=== PATIENT | female | born 1935 | race Caucasian/White ===

== ENCOUNTER → 2016-07-01 | Outpatient (CLI) | payer OTHER, MEDICARE | LOC: BMCIMAGING 07:25 | PROVIDERS: ATTEND Family Medicine | DX: Z12.31 Encounter for screening mammogram for malignant neoplasm of breast (principal) | CPT/HCPCS: G0202 ==

== ENCOUNTER → 2016-10-12 | Outpatient (CLI) | payer OTHER, MEDICARE | PROVIDERS: ATTEND Otolaryngology | DX: R13.10 Dysphagia, unspecified (principal) | CPT/HCPCS: 92611-GN ==

== ENCOUNTER → 2017-03-25 | Day surgery (SDC) | payer OTHER, MEDICARE ==
[~2017-03-25] MED LIST: IOPAMIDOL (ISOVUE 370) 100 ML BTL IV ONE
== END | disposition home or self-care (01) ==
LOC: FIMAGING 07:07
PROVIDERS: ATTEND Surgery
DX: I77.4 Celiac artery compression syndrome (principal); I77.3 Arterial fibromuscular dysplasia; K57.30 Diverticulosis of large intestine without perforation or abscess without bleeding; M47.896 Other spondylosis, lumbar region; M43.16 Spondylolisthesis, lumbar region
CPT/HCPCS: Q9967

== ENCOUNTER 2017-04-05 14:23 | Day surgery (SDC) | payer OTHER, MEDICARE ==
[2017-04-05] MEDS ORDERED: LR 1,000 ML IV ONE (14:48)
[2017-04-05] MEDS ORDERED: LIDOCAINE 1% 2 ML INJ ID PRN (14:48)
[2017-04-05 14:57] VITALS: BP 128/63; PULSE 85; RESP 18; TEMP 97.9; O2SAT 96
--- NOTE | 2017-04-05 15:17 | PDANEPAE ---
ANE History of Present Illness abdominal pain ANE Past Medical History - Cardiovascular History Hx Hypertension: Yes Hx Arrhythmias: No Hx Chest Pain: No Hx Coronary Artery / Peripheral Vascular Disease: Yes Hx CHF / Valvular Disease: No Hx Palpitations: No Cardiovascular History Comment: hyperlipidemia. aortic valve regurgitation - Pulmonary History Hx COPD: No Hx Asthma/Reactive Airway Disease: No Hx Recent Upper Respiratory Infection: No Hx Oxygen in Use at Home: Yes O2 in Use at Home (L/minute): 2 Hx Sleep Apnea: Yes Sleep Apnea Screening Result - Last Documented: Positive Pulmonary History Comment: ezio positive uses o2 - Neurologic History Hx Cerebrovascular Accident: No Hx Seizures: No Hx Dementia: No Neurologic History Comment: hx back surgery - Endocrine History Hx Diabetes: No - Renal History Hx Renal Disorders: Yes Renal History Comment: UTI 02/2017. renal artery stenosis, - Liver History Hx Hepatic Disorders: No - Neurological & Psychiatric Hx Hx Neurological and Psychiatric Disorders: No - Cancer History Hx Cancer: Yes Cancer History Comment: skin ca - Congenital Disorder History Hx Congenital Disorders: No - GI History Hx Gastrointestinal Disorders: Yes Gastrointestinal History Comment: reflux. chronic ruq pain - Other Health History Other Health History: Hemolytic anemia,. patient requests warm IV fluids and lots of warming blankets - Chronic Pain History Chronic Pain: Yes (RUQ) - Surgical History Prior Surgeries: EGD WITH BX 10/2015. YULI CATARACT. hysterectomy. appy. tonsillectomy. babak / gallbladder / common bile duct surgery. LAMINECTOMY ANE Review of Systems Review of Systems: - Exercise capacity METS (RN): 4 METS ANE Patient History - Allergies Allergies/Adverse Reactions: No Known Allergies Allergy (Verified 03/17/17 12:55) - Home Medications Home Medications: BENICAR 20 mg PO HS 11/25/08 [Last Taken 10/17/15] Align 1 tab PO HS 10/17/15 [Last Taken 10/17/15] Aspirin 81mg (*) 81 mg PO HS 10/17/15 [Last Taken 10/17/15] Folic Acid 1 MG (*) HS 10/17/15 [Last Taken 10/17/15] Vitamin D3 2000 units tab (OTC) 2,000 units PO DAILY 10/17/15 [Last Taken ] Zetia 10 MG (*) 10 mg PO HS 10/17/15 [Last Taken 10/17/15] - NPO status NPO Since - Liquids (Date): 04/05/17 NPO Since - Liquids (Time): 12:30 NPO Since - Solids (Date): 04/04/17 NPO Since - Solids (Time): 18:00 - Smoking Hx Smoking Status: Never smoked - Family Anes Hx Family Hx Anesthesia Complications: none ANE Labs/Vital Signs - Vital Signs Blood Pressure: 128/63 Heart Rate: 85 Respiratory Rate: 18 O2 Sat (%): 96 Height: 162.56 cm Weight: 68.946 kg ANE Physical Exam - Airway Neck exam: FROM Mallampati Score: Class 2 Mouth exam: normal dental/mouth exam - Pulmonary Pulmonary: no respiratory distress - Cardiovascular Cardiovascular: regular rate and rhythym - ASA Status ASA Status: III ANE Anesthesia Plan Anesthesia Plan: general endotracheal anesthesia
[2017-04-05] MEDS ORDERED: GLUCAGON HCL 1 MG VIAL ONE (15:20)
[2017-04-05] MEDS ORDERED: IOTHALAMATE MEG (CONRAY) 50 ML VIAL IV ONE (15:21)
== END 2017-04-05 16:00 | disposition home or self-care (01) ==
LOC: FSGY 14:23
PROVIDERS: ATTEND Internal Medicine Gastroenterology
DX: R10.11 Right upper quadrant pain (principal); E78.5 Hyperlipidemia, unspecified; I35.1 Nonrheumatic aortic (valve) insufficiency; G47.33 Obstructive sleep apnea (adult) (pediatric); Z99.81 Dependence on supplemental oxygen; Z53.09 Procedure and treatment not carried out because of other contraindication
CPT/HCPCS: J1610; Q9961

== ENCOUNTER 2017-04-19 13:22 | Day surgery (SDC) | payer OTHER, MEDICARE ==
[~2017-04-19 13:22] MED LIST changes: +GLUCAGON HCL 1 MG VIAL ONE; -IOPAMIDOL (ISOVUE 370) 100 ML BTL IV ONE; +IOTHALAMATE MEG (CONRAY) 50 ML VIAL IV ONE
[2017-04-19] MEDS ORDERED: LIDOCAINE 1% 2 ML INJ ID PRN (13:47)
[2017-04-19] MEDS ORDERED: LR 1,000 ML IV ONE (13:47)
--- NOTE | 2017-04-19 14:34 | PDGENHP ---
History & Physical Chief Complaint: abdominal pain History of Present Illness: 81 year old female presents for evauation of RUQ abdominal pain and biliary dilation. Pertinent Past, Social, Family History: FaMHx: no hx of panc can. SugHx: CCY Relevant Physical Exam: HEENT: anicteric. CV: RRR +s1s2. Lung: CTAB. Abd: soft, nt, + bs Cardiorespiratory Assessment: ASA 2
--- NOTE | 2017-04-19 14:38 | PDANEPAE ---
ANE History of Present Illness 81 yo female with chronic abd pain for EGD/EUS, ERCP ANE Past Medical History - Cardiovascular History Hx Hypertension: Yes Hx Arrhythmias: No Hx Chest Pain: No Hx Coronary Artery / Peripheral Vascular Disease: Yes Hx CHF / Valvular Disease: No Hx Palpitations: No Cardiovascular History Comment: hyperlipidemia, CAD. aortic valve regurgitation - moderate - Pulmonary History Hx COPD: No Hx Asthma/Reactive Airway Disease: No Hx Recent Upper Respiratory Infection: No Hx Oxygen in Use at Home: Yes O2 in Use at Home (L/minute): 2l at noc Hx Sleep Apnea: Yes Sleep Apnea Screening Result - Last Documented: Positive Pulmonary History Comment: ezio positive uses o2 - Neurologic History Hx Cerebrovascular Accident: No Hx Seizures: No Hx Dementia: No Neurologic History Comment: hx back surgery - Endocrine History Hx Diabetes: No Hypothyroid: No Hyperthyroid: No - Renal History Hx Renal Disorders: Yes Renal History Comment: UTI 02/2017. renal artery stenosis, - Liver History Hx Hepatic Disorders: No - Neurological & Psychiatric Hx Hx Neurological and Psychiatric Disorders: No - Cancer History Hx Cancer: Yes Cancer History Comment: skin ca - Congenital Disorder History Hx Congenital Disorders: No - GI History GERD: moderate Hx Gastrointestinal Disorders: Yes Gastrointestinal History Comment: reflux. chronic ruq pain - Other Health History Other Health History: Hemolytic anemia. wears glasses. patient requests warm IV fluids and lots of warming blankets - Chronic Pain History Chronic Pain: Yes (RUQ) - Surgical History Prior Surgeries: procedure cx'd 04/05/17 with Raju d/t broth being ingested. EGD WITH BX 10/2015. YULI CATARACT. hysterectomy. appy. tonsillectomy. babak / gallbladder / common bile duct surgery. LAMINECTOMY ANE Review of Systems Review of Systems: - Exercise capacity METS (RN): 4 METS - Systems Gastrointestinal: Reports: abdominal pain ANE Patient History - Allergies Allergies/Adverse Reactions: No Known Allergies Allergy (Verified 04/16/17 11:14) - Home Medications Home medications: home medication list seen and reviewed Home Medications: BENICAR 11/25/08 [Last Taken 04/18/17 20:30] Align 10/17/15 [Last Taken 04/18/17 20:30] Aspirin 81mg (*) 10/17/15 [Last Taken 04/16/17] Folic Acid 1 MG (*) 10/17/15 [Last Taken 04/16/17] Vitamin D3 2000 units tab (OTC) HS 10/17/15 [Last Taken 04/16/17] Zetia 10 MG (*) 10/17/15 [Last Taken 04/18/17 20:30] - NPO status NPO Since - Liquids (Date): 04/19/17 NPO Since - Liquids (Time): 10:00 NPO Since - Solids (Date): 04/18/17 NPO Since - Solids (Time): 18:00 - Anes Hx Anes Hx: no prior problems - Smoking Hx Smoking Status: Never smoked Marijuana use: No - Alcohol Use Alcohol Use: Rarely - Family Anes Hx Family Anes Hx: neg - N/A Family Hx Anesthesia Complications: none ANE Labs/Vital Signs - Vital Signs Blood Pressure: 129/61 Heart Rate: 85 Respiratory Rate: 16 O2 Sat (%): 96 Height: 162.56 cm Weight: 68.946 kg ANE Physical Exam - Airway Neck exam: FROM Mallampati Score: Class 2 Mouth exam: normal dental/mouth exam - Pulmonary Pulmonary: clear to auscultation - Cardiovascular Cardiovascular: regular rate and rhythym - ASA Status ASA Status: III ANE Anesthesia Plan Anesthesia Plan: general endotracheal anesthesia
[2017-04-19] MEDS ORDERED: ROCURONIUM 50 MG/5 ML VIAL ONE (14:50)
[2017-04-19] MEDS ORDERED: LIDOCAINE 2% 5 ML SDV ONE (14:50)
[2017-04-19] MEDS ORDERED: DEXAMETHASONE 4 MG/ML VIAL ONE (14:50)
[2017-04-19] MEDS ORDERED: PROPOFOL 200 MG/20 ML VIAL ONE (14:51)
[2017-04-19] MEDS ORDERED: fentaNYL 100 MCG/2 ML INJ ONE (14:51)
[2017-04-19] MEDS ORDERED: INDOMETHACIN 50 MG SUPP PR PRN (14:52)
[2017-04-19] MEDS ORDERED: NS 500 ML IV SCH (15:00)
[2017-04-19] MEDS ORDERED: PHENYLEPHRINE HCL 100 MCG/ML SYR ONE (15:11)
[2017-04-19] MEDS ORDERED: INDOMETHACIN 50 MG SUPP PR ONE (15:15)
[2017-04-19] MEDS ORDERED: SUGAMMADEX SODIUM 200 MG/2 ML VIAL IVP ONE (15:38)
--- NOTE | 2017-04-19 15:51 | GIREPORT ---
[facility] - Endoscopy Department Patient Name: Zuri Cordero Procedure Date: 04/19/2017 2:20 PM Patient Type: Outpatient Attending MD/ ER Physician: Magdaleno Benton MD Procedure: Upper EUS Indications: Common bile duct dilation (acquired) seen on CT scan, Abdominal pain in the right upper quadrant Patient Profile: 81 year old female presents for evaluation of biliary dilation/RUQ abdo sandy pain. Providers: Magdaleno Benton MD Medicines: General Anesthesia Complications: No immediate complications. Estimated blood loss: Minimal. Description of Procedure: After obtaining informed consent, the endoscope was passed under direct vision. Throughout the procedure, the patient's blood pressure, pulse, and oxygen saturations were monitored continuously. The Endosonoscope was introduced through the mouth, and advanced to the second part of duoden um. The Endoscope was introduced through the mouth, and advanced to the sec ond part of duodenum. The upper EUS was accomplished without difficulty. Th e esophagus, stomach, and duodenum were visualized endosonographically. T he patient tolerated the procedure well. Findings: Endoscopic Finding : The examined esophagus was normal. A medium-sized hiatal hernia was present. Patchy mildly erythematous mucosa was found in the gastric body and in the gastric antrum. Biopsies were taken with a cold forceps for histology. Multiple sessile polyps were found on the greater curvature of the stom ach. Biopsies were taken with a cold forceps for histology. The examined duodenum was normal. Biopsies for histology were taken wit h a cold forceps for evaluation of celiac disease. Endosonographic Finding : There was dilation in the common bile duct which measured up to 9 mm wi th a possible distal stricture Moderate hyperechoic material consistent with sludge was visualized endosonographically in the common bile duct. There was no sign of significant endosonographic abnormality in the visualized portion of the liver. No lymphadenopathy seen. Pancreatic parenchymal abnormalities were noted in the entire pancreas. These consisted of hyperechoic foci. Estimated Blood Loss: Estimated blood loss was minimal. Post Op Diagnosis: - Normal esophagus. - Medium-sized hiatal hernia. - Erythematous mucosa in the gastric body and antrum. Biopsied. - Multiple gastric polyps. Biopsied. - Normal examined duodenum. Biopsied. - There was dilation in the common bile duct which measured up to 9 mm with mild stricturing in the distal CBD, - Hyperechoic material consistent with sludge was visualized endosonographically in the common bile duct. - There was no evidence of significant pathology in the visualized port ion of the liver. - Pancreatic parenchymal abnormalities consisting of hyperechoic foci w ere noted in the entire pancreas. Recommendation: - Perform an ERCP today. - More recommendations on colonosocpy report. - Await path results. - Thank you for allowing me to participate in the care of your patient. Attending Participation: I personally performed the entire procedure. Magdaleno Benton MD Magdaleno Benton MD 04/19/2017 3:50:37 PM This report has been signed electronicallyMagdaleno Benton MD Number of Addenda: 0 Note Initiated On: 04/19/2017 2:20 PM [email or web address]
[2017-04-19] MEDS ORDERED: LR 500 ML IV PRN (15:58)
[2017-04-19] MEDS ORDERED: NALOXONE HCL 0.4 MG/ML INJ IVP PRN ×2 (15:58)
[2017-04-19] MEDS ORDERED: ACETAMINOPHEN 500 MG TAB PO PRN (15:58)
[2017-04-19] MEDS ORDERED: ALBUTEROL 3 ML DEYVIAL IH PRN (15:58)
[2017-04-19] MEDS ORDERED: ONDANSETRON 4 MG/2 ML VIAL IVP PRN (15:58)
--- NOTE | 2017-04-19 15:59 | POSTANESTH ---
Post Anesthetic Evaluation Cardiovascular Status: Normal, Stable Respiratory Status: Normal, Stable Level of Consciousness/Mental Status: Can Participate in Eval, Moderately Sleepy Pain Control: Adequate, Prn Tx Ordered Nausea/Vomiting Control: Adequate, Prn Tx Ordered Complications Possibly Related to Anesthesia: None Noted
--- NOTE | 2017-04-19 16:04 | GIREPORT ---
[facility] - Endoscopy Department Patient Name: Zuri Cordero Procedure Date: 04/19/2017 2:20 PM Patient Type: Outpatient Attending MD/ ER Physician: Magdaleno Benton MD Procedure: ERCP Indications: Abdominal pain of suspected biliary origin, Abnormal endoscopic ultraso und of the biliary system Patient Profile: Ms. Cordero is a 81 year old female who presents for evaluation of bili jacques obstruction. Providers: Magdaleno Benton MD Medicines: General Anesthesia, Indomethacin 100 mg CA Complications: No immediate complications. Estimated blood loss: Minimal. Description of Procedure: After obtaining informed consent, the scope was passed under direct vis ion. Throughout the procedure, the patient's blood pressure, pulse, and oxyg en saturations were monitored continuously. The was introduced through the mouth, and advanced to the duodenum and used to inject contrast into th e bile duct. The ERCP was accomplished without difficulty. The patient tolerated the procedure well. Findings: The cupola man film was normal. The esophagus was successfully intubated und er direct vision. The scope was advanced to a normal major papilla in the descending duodenum without detailed examination of the pharynx, larynx and associated structures, and upper GI tract. The upper GI tract was gross ly normal. Evidence of a prior biliary sphincterotomy was visualzied A wir e was passed into the biliary tree. The short-nosed traction sphincterotome w as passed over the guidewire and the bile duct was then deeply cannulated. There was grasping of the sphincterotome consistent with ampullary sten osis. Contrast was injected. I personally interpreted the bile duct images. D uctal flow of contrast was adequate. Image quality was adequate. Contrast ext ended to the entire biliary tree. A 6 mm biliary sphincterotomy was made with a traction (standard) sphincterotome using pure cut current. There was no post-sphincterotomy bleeding. The biliary tree was swept with a 12 mm balloon starting at the bifurcation. Sludge was swept from the duct. Estimated Blood Loss: Estimated blood loss was minimal. Post Op Diagnosis: - Ssupected ampullary stenosis. - A biliary sphincterotomy was performed. - The biliary tree was swept and sludge was found. Recommendation: - Discharge patient to home (with escort). - Clear liquid diet. - Continue present medications. - Office follow up in 6 weeks. - Thank you for allowing me to particpate in the care of your patient. Attending Participation: I personally performed the entire procedure. Magdaleno Benton MD Magdaleno Benton MD 04/19/2017 4:03:43 PM This report has been signed electronicallyMagdaleno Benton MD Number of Addenda: 0 Note Initiated On: 04/19/2017 2:20 PM [email or web address]
[2017-04-19 16:37] VITALS: PULSE 69; TEMP 98.6
[2017-04-19] MEDS ORDERED: IBUPROFEN 200 MG TAB PO ONE (16:56)
[2017-04-19] MEDS ORDERED: IBUPROFEN 800 MG TAB PO ONE ×2 (17:00→17:05)
[2017-04-19 17:42] VITALS: RESP 19; O2SAT 93
[2017-04-19 19:00] VITALS: BP 131/71
== END 2017-04-19 19:00 | disposition home or self-care (01) ==
LOC: FSGY 13:22
PROVIDERS: ATTEND Internal Medicine Gastroenterology
PROC: 0DB68ZX Excision of Stomach, Via Natural or Artificial Opening Endoscopic, Diagnostic (ICD-10-PCS; principal; 2017-04-19 14:45)
PROC: 0F798ZZ Dilation of Common Bile Duct, Via Natural or Artificial Opening Endoscopic (ICD-10-PCS; principal; 2017-04-19 14:45)
PROC: 0DB98ZX Excision of Duodenum, Via Natural or Artificial Opening Endoscopic, Diagnostic (ICD-10-PCS; principal; 2017-04-19 14:45)
DX: D13.1 Benign neoplasm of stomach (principal); K29.70 Gastritis, unspecified, without bleeding; G47.34 Idiopathic sleep related nonobstructive alveolar hypoventilation; I35.1 Nonrheumatic aortic (valve) insufficiency; I10 Essential (primary) hypertension; I25.10 Atherosclerotic heart disease of native coronary artery without angina pectoris; E78.5 Hyperlipidemia, unspecified; K21.9 Gastro-esophageal reflux disease without esophagitis; D58.9 Hereditary hemolytic anemia, unspecified; Z99.81 Dependence on supplemental oxygen
CPT/HCPCS: J1100; J1610; J2370; J2704; J3010; Q9961

== ENCOUNTER → 2017-04-27 | Outpatient (CLI) | payer OTHER, MEDICARE | LOC: BHFA 11:30 | PROVIDERS: ATTEND Internal Medicine | DX: R06.00 Dyspnea, unspecified (principal) ==

== ENCOUNTER → 2017-05-07 | Outpatient (CLI) | payer OTHER, MEDICARE | LOC: BHFA 13:00 | PROVIDERS: ATTEND Internal Medicine Cardiovascular Disease | DX: R94.30 Abnormal result of cardiovascular function study, unspecified (principal) | CPT/HCPCS: 78452; 93017; A9500 ==

== ENCOUNTER → 2017-05-11 | Outpatient (CLI) | payer OTHER, MEDICARE | LOC: BHFA 14:45 | PROVIDERS: ATTEND Internal Medicine | DX: I35.1 Nonrheumatic aortic (valve) insufficiency (principal) ==

== ENCOUNTER → 2017-07-05 | Outpatient (CLI) | payer OTHER, MEDICARE | LOC: BMCIMAGING 08:18 | PROVIDERS: ATTEND Family Medicine | DX: Z12.31 Encounter for screening mammogram for malignant neoplasm of breast (principal) ==

== ENCOUNTER → 2017-11-02 | Outpatient (CLI) | payer OTHER, MEDICARE | LOC: BMCIMAGING 12:23 | PROVIDERS: ATTEND Internal Medicine Rheumatology | DX: M11.241 Other chondrocalcinosis, right hand (principal); M11.242 Other chondrocalcinosis, left hand ==

== ENCOUNTER → 2018-06-23 | Outpatient (CLI) | payer OTHER, MEDICARE ==
[~2018-06-23] MED LIST changes: +GADOBUTROL 10 ML VIAL IVP ONE; -GLUCAGON HCL 1 MG VIAL ONE; -IOTHALAMATE MEG (CONRAY) 50 ML VIAL IV ONE
== END ==
LOC: FIMAGING 14:21
PROVIDERS: ATTEND Internal Medicine Hematology & Oncology
DX: R51 Headache (principal); D59.1 Other autoimmune hemolytic anemias; H35.60 Retinal hemorrhage, unspecified eye
CPT/HCPCS: 70553; A9585

== ENCOUNTER → 2018-07-12 | Outpatient (CLI) | payer OTHER, MEDICARE | LOC: BMCIMAGING 12:48 | PROVIDERS: ATTEND Family Medicine | DX: N95.8 Other specified menopausal and perimenopausal disorders (principal) ==

== ENCOUNTER → 2018-07-12 | Outpatient (CLI) | payer OTHER, MEDICARE | LOC: BMCIMAGING 12:51 | PROVIDERS: ATTEND Family Medicine | DX: Z13.820 Encounter for screening for osteoporosis (principal); N95.8 Other specified menopausal and perimenopausal disorders; Z78.0 Asymptomatic menopausal state; M81.0 Age-related osteoporosis without current pathological fracture ==